=== PATIENT | female | born 1965 | race Caucasian/White ===

== ENCOUNTER 2021-02-19 17:16 | Emergency (ER) | payer MEDICARE ==
[~2021-02-19 17:16] MED LIST: BACTRIM DS TAB1 EACH PO; BENADRYL25 MG PO; KEFLEX250 MG PO; LEVAQUIN500 MG PO; NORCO 5-325 TA1 EACH PO; PEPCID AC20 MG PO; PERCOCET 5-3251 EACH PO; PREDNISONE 20MG20 MG PO; ZOVIRAX800 MG PO
[2021-07-05] MEDS ORDERED: METFORMIN HCL500 MG PO (15:17)
== END 2021-02-19 20:02 | disposition home or self-care (01) ==
LOC: FER 17:16
DX: S46.911A Strain of unspecified muscle, fascia and tendon at shoulder and upper arm level, right arm, initial encounter (principal); Z88.8 Allergy status to other drugs, medicaments and biological substances; W50.0XXA Accidental hit or strike by another person, initial encounter; Y92.009 Unspecified place in unspecified non-institutional (private) residence as the place of occurrence of the external cause
CPT/HCPCS: 73030

== ENCOUNTER 2021-06-30 19:21 | Inpatient (IN) | payer MEDICARE ==
[~2021-06-30] VITALS: Ht 162.6 cm; Wt 97.1 kg
[2021-06-30 21:40] LABS: BASOPHIL 0.8 % (0-2); EOSINOPHIL 0.2 % (0-5); HCT 46.9 % (37.0-47.0); HGB 15.1 g/dl (12.5-16.0); MCH 28.5 pg (25.0-31.0); MCHC 32.2 g/dL (32.0-36.0); MCV 88.7 fL (78.0-100.0); MONOCYTE 4.5 % (0-12); NRBC 0; PLT 221 K/uL (150-400); RBC 5.29 M/uL (4.20-5.40); RDW 13.2 % (11.5-14.0); WBC 6.5 K/uL (4.0-10.5)
[2021-06-30 21:53] LABS: LYMPHOCYTE 21.8 % (15-48)
[2021-06-30 21:55] LABS: ALBUMIN 2.8 g/dL (3.4-5.0); BILIRUBIN - TOTAL 0.2 mg/dL (0.2-1.0); BUN/CREAT RATIO (CALC) 26.6 RATIO; CREATININE 0.64 mg/dL (0.51-0.95); GLOBULIN (CALCULATION) 5.5 g/dL; POTASSIUM 4.5 mmol/L (3.5-5.1); TOTAL PROTEIN 8.3 g/dL (6.4-8.2)
[2021-06-30 22:01] LABS: LACTIC ACID 2.4 mmol/L (0.4-1.9)
[2021-06-30 22:48] LABS: BILIRUBIN NEGATIVE (NEGATIVE); BLOOD NEGATIVE Ery/uL (NEGATIVE); CLARITY CLEAR (CLEAR); COLOR YELLOW (YELLOW); GLUCOSE (U) 3+ mg/dL (NORMAL); LEUKOCYTES 1+ Leu/uL (NEGATIVE); NITRITE POSITIVE (NEGATIVE); PROTEIN TRACE (LOW) mg/dL (NEGATIVE); SPECIFIC GRAVITY 1.025 (1.001-1.030); UROBILINOGEN 0.2 mg/dL (0.2-1.0); pH 5.5 (5.0-9.0)
[2021-06-30 22:55] LABS: BACTERIA 4+; URINARY WBC TNTC
[2021-06-30 23:13] LABS: INFLUENZA A NAA NEGATIVE (NEGATIVE)
[2021-06-30 23:24] LABS: CORONAVIRUS 2019 SARS-COV-2 POSITIVE (NEGATIVE)
[2021-07-01 04:45] LABS: BASOPHIL 0.6 % (0-2); EOSINOPHIL 0 % (0-5); HCT 40.9 % (37.0-47.0); HGB 13.3 g/dl (12.5-16.0); LYMPHOCYTE 12.4 % (15-48); MCH 28.7 pg (25.0-31.0); MCHC 32.5 g/dL (32.0-36.0); MCV 88.3 fL (78.0-100.0); MONOCYTE 2.2 % (0-12); MPV 11.1 fL (6.0-9.5); NRBC 0; PLT 200 K/uL (150-400); RBC 4.63 M/uL (4.20-5.40); RDW 13.1 % (11.5-14.0); WBC 8.6 K/uL (4.0-10.5)
[2021-07-01 04:56] LABS: NEUTROPHIL 82.9 % (41-80)
[2021-07-01 05:10] LABS: BUN/CREAT RATIO (CALC) 29.5 RATIO; CREATININE 0.61 mg/dL (0.51-0.95); POTASSIUM 4.3 mmol/L (3.5-5.1)
--- NOTE | 2021-07-01 05:14 | NUR ---
REMDESIVIR ORDERED NOT AVAILABLE UNTIL PHARMACY HERE SO TIME IS TO BE CHANGED FOR THAT BY OUTSIDE PHARMACY
--- NOTE | 2021-07-01 15:21 | NUR ---
2904 dr ang notified of consult
--- NOTE | 2021-07-01 18:09 | NUR ---
1600 PATIENT IN RESTROOM SMOKING CIGARETTE. AND CHRISTEL, FACTORY REPRESENTATIVE NOIFIED. PATIENT EDUCATED ON NON SMOKING POLICY AND THE DANGER OF SMOKING WHILE ON OXYGEN. PATIENT STATED "I WAS NOT SMOKING" BUT BRYON PEÑA WITNESSED PATIENT SMOKING IN BATHROOM. PATIENT AGAIN EDUCATED ON THE NO SMOKING POLICY.
--- NOTE | 2021-07-01 18:12 | NUR ---
9820 PATIENT REQUESTED TO SEY UP PASSWORD "BABY GIRL"
--- NOTE | 2021-07-01 19:18 | NUR ---
1625 PATIENT 429 NOTIFIED. ORDERED TO GIVE 18 U SSI
[2021-07-01] MEDS ORDERED: VENLAFAXINE HC150 MG PO (20:58)
[2021-07-01] MEDS ORDERED: TRAZODONE HCL150 MG PO (20:59)
--- NOTE | 2021-07-02 14:43 | NUR ---
PT RESIDES ALONE. SHE IS INDEPENDENT OTHER THAN USING A CANE TO MANUVER HER STEPS. PT. STATES THAT SHE HUERTA BEEN DIAGNOSISED A NEW DIABETIC. ASKED IF SHE WOULD LIKE TO HAVE A HH TO ASSIST IN TEACHING WITH HER DIABETES. SHE SAID THAT SHE WOULD SHE DID NOT MAKE ANY REQUESTS OF A PARTICULAR HH. PT. HAS A [facility] ADDRESS, BUT RESIDES IN [facility].
--- NOTE | 2021-07-03 15:18 | NUR ---
[facility] WILL ACCEPT PT FOR HH SERVICES. ADVISED PT. AND NURSE, BRIGIDO, THAT PT. WILL HAVE [facility] FOR HH.
[2021-07-04] MEDS ORDERED: METFORMIN HCL1000 M1 PO (09:39)
[2021-07-04] MEDS ORDERED: DEXAMETHASONE6 MG PO (09:39)
[2021-07-04] MEDS ORDERED: LEVEMIR VI100 UNITS/ SC (09:43)
--- NOTE | 2021-07-04 13:06 | NUR ---
PT STATES THAT SHE DOES NOT HAVE A RIDE HOME. TRIED HER SISTERS, FLO AND CONSUELO THEY BOTH REFUSE TO COME GET HER. GOT PERMISSION FOR HOUSE, MARK, TO CONTACT KARIS[facility]. KAR[facility] WILL PROVISIONING SPECIALIST PT AT 4:00 P.M. AND TRANSFER HER TO HER HOME. REF # IS [id number]. ADVISED KARTHIKEYAN FOFANA AND PT.
[2021-07-05] MEDS ORDERED: METFORMIN HCL500 MG PO (15:17)
--- NOTE | 2021-07-05 15:31 | NUR ---
PATIENT CALLED TODAY STATING THAT SHE WAS DC YESTERDAY AND THAT [employer] DID NOT HAVE HER MEDICAITON AND THAT HOME HEALTH HAD NOT SHOWED UP AT HER HOUSE. I TOLD HER I WOULD LOOK INTO IT AND CALL HER BACK. PER , SHE HAD ONE SCRIPT THAT SHE ALL READY HAD AT HOME BUT HER SENT IN ANOTHER ONE, SHE HAD ONE THAT HE HAD TO CALL IN. AND HER MET[employer]MIN WAS NOT COVERED WITH INSURANCE SO MD HAD TO CALL IN AN MEDICATION THAT WAS COVERED BY MEDICATION. ALSO SENT A CURRENT PHONE NUMBER THAT [facility] COULD CALL THE PATIENT. THE NUMBER IN THE SYSTEM WAS NOT WORKING. DONITA SENT A TEXT TO [facility] WITH THE CORRECT NUMBER [phone].
== END 2021-07-04 17:00 | disposition home health service (06) | DRG 177 ==
LOC: FER 19:21 → FMS 07-01 01:56
PROVIDERS: Emergency Medicine Emergency Medical Services; Nurse Practitioner; ADMIT Allergy & Immunology Allergy
PROC: XW033E5 Introduction of Remdesivir Anti-infective into Peripheral Vein, Percutaneous Approach, New Technology Group 5 (ICD-10-PCS; principal; 2021-07-01)
PROC: 8E0ZXY6 Isolation (ICD-10-PCS; 2021-07-01)
DX: U07.1 COVID-19 (principal); J12.82 Pneumonia due to coronavirus disease 2019; J96.01 Acute respiratory failure with hypoxia; E11.65 Type 2 diabetes mellitus with hyperglycemia; F41.1 Generalized anxiety disorder; F43.10 Post-traumatic stress disorder, unspecified; F32.9 Major depressive disorder, single episode, unspecified; K58.9 Irritable bowel syndrome, unspecified; F17.210 Nicotine dependence, cigarettes, uncomplicated; Z90.710 Acquired absence of both cervix and uterus; Z98.890 Other specified postprocedural states; Z91.040 Latex allergy status; Z88.1 Allergy status to other antibiotic agents; Z88.8 Allergy status to other drugs, medicaments and biological substances
CPT/HCPCS: 36415; 36600; 71045; 80048; 80053; 81001; 82803; 82962; 83036; 83605; 83690; 84145; 84484; 85025; 85379; 87040; 87070; 87077; 87088; 87186; 87205; 93005; 94010; 94640; 94664; 94667; 94668; 94760; 94762; C9399; J0456; J0696; J1100; J1650; J2405; J7030; J7050; J8540; U0002

== ENCOUNTER 2021-11-06 13:02 | Inpatient (IN) | payer MEDICARE, OTHER ==
[~2021-11-06] VITALS: Ht 163 cm; Wt 88.9 kg
[~2021-11-06 13:02] MED LIST changes: +DEXAMETHASONE6 MG PO; +LEVEMIR VI100 UNITS/ SC; +METFORMIN HCL1000 M1 PO; +METFORMIN HCL500 MG PO; +TRAZODONE HCL150 MG PO; +VENLAFAXINE HC150 MG PO
[2021-11-06 15:06] LABS: BASOPHIL 0.5 % (0-2); EOSINOPHIL 0.1 % (0-5); LYMPHOCYTE 6.4 % (15-48); MCH 28.1 pg (25.0-31.0); MCHC 34.1 g/dL (32.0-36.0); MCV 82.4 fL (78.0-100.0); MONOCYTE 2.5 % (0-12); MPV 12.7 fL (6.0-9.5); NEUTROPHIL 88.3 % (41-80); NRBC 0; PLT 188 K/uL (150-400); RBC 5.34 M/uL (4.20-5.40); RDW 13.2 % (11.5-14.0); WBC 24.3 K/uL (4.0-10.5)
[2021-11-06 15:16] LABS: INR 1.08 (0.9-1.2); PROTHROMBIN TIME 13.4 SECONDS (11.8-13.4); PTT 28.6 SECONDS (24.4-34.7)
[2021-11-06 15:25] LABS: ALBUMIN 2.1 g/dL (3.4-5.0); ALKALINE PHOSHATASE 143 U/L (46-116); ALT 47 U/L (14-59); AST 89 U/L (15-37); BILIRUBIN - TOTAL 0.6 mg/dL (0.2-1.0); BUN 61 mg/dL (7-18); BUN/CREAT RATIO (CALC) 59.2 RATIO; CHLORIDE 89 mmol/L (98-107); CO2 (BICARBONATE) 24 mmol/L (21-32); CREATININE 1.03 mg/dL (0.51-0.95); GLOBULIN (CALCULATION) 5.5 g/dL; GLUCOSE 259 mg/dL (74-106); POTASSIUM 4.1 mmol/L (3.5-5.1); TOTAL PROTEIN 7.6 g/dL (6.4-8.2)
[2021-11-06 15:27] LABS: LACTIC ACID 1.8 mmol/L (0.4-1.9)
[2021-11-06 16:15] LABS: BILIRUBIN 1+ mg/dL (NEGATIVE); BLOOD 3+ Ery/uL (NEGATIVE); CLARITY CLEAR (CLEAR); COLOR YELLOW (YELLOW); GLUCOSE (U) TRACE mg/dL (NORMAL); LEUKOCYTES NEGATIVE Leu/uL (NEGATIVE); NITRITE NEGATIVE (NEGATIVE); PROTEIN 1+ mg/dL (NEGATIVE); UROBILINOGEN 0.2 mg/dL (0.2-1.0); pH 5.5 (5.0-9.0)
[2021-11-06 16:16] LABS: AMPHETAMINES NEGATIVE (NEGATIVE); BARBITURATES NEGATIVE (NEGATIVE); ECSTASY (MDMA) NEGATIVE (NEGATIVE); MARIJUANA (THC) NEGATIVE (NEGATIVE); METHADONE NEGATIVE (NEGATIVE); OPIATES NEGATIVE (NEGATIVE)
[2021-11-06 16:17] LABS: OXYCODONE NEGATIVE (NEGATIVE)
[2021-11-06 16:20] LABS: BACTERIA TRACE
[2021-11-06 16:21] LABS: AMORPHOUS URATES CRYSTALS MODERATE; GRANULAR CASTS MODERATE; MUCOUS MODERATE; YEAST PRESENT
[2021-11-06 17:23] LABS: CORONAVIRUS 2019 SARS-COV-2 NEGATIVE (NEGATIVE); INFLUENZA A NAA NEGATIVE (NEGATIVE)
[2021-11-07 07:13] LABS: BASOPHIL 0.4 % (0-2); EOSINOPHIL 0.3 % (0-5); HCT 36.7 % (37.0-47.0); HGB 12.5 g/dl (12.5-16.0); LYMPHOCYTE 13.2 % (15-48); MCH 27.9 pg (25.0-31.0); MCHC 34.1 g/dL (32.0-36.0); MCV 81.9 fL (78.0-100.0); MONOCYTE 5.3 % (0-12); MPV 12.1 fL (6.0-9.5); NRBC 0; PLT 193 K/uL (150-400); RBC 4.48 M/uL (4.20-5.40); RDW 13.3 % (11.5-14.0); WBC 24.9 K/uL (4.0-10.5)
[2021-11-07 07:37] LABS: BUN 58 mg/dL (7-18); BUN/CREAT RATIO (CALC) 59.2 RATIO; C-REACTIVE PROTEIN >18.00 mg/dL (<=0.90); CHLORIDE 94 mmol/L (98-107); CO2 (BICARBONATE) 23 mmol/L (21-32); CREATININE 0.98 mg/dL (0.51-0.95); GLUCOSE 190 mg/dL (74-106); POTASSIUM 3.1 mmol/L (3.5-5.1)
[2021-11-08 05:51] LABS: BASOPHIL 0.6 % (0-2); HCT 36.6 % (37.0-47.0); HGB 12.6 g/dl (12.5-16.0); LYMPHOCYTE 15.3 % (15-48); MCH 28.3 pg (25.0-31.0); MCHC 34.4 g/dL (32.0-36.0); MCV 82.1 fL (78.0-100.0); MONOCYTE 4.8 % (0-12); MPV 11.6 fL (6.0-9.5); NEUTROPHIL 73.1 % (41-80); NRBC 0; PLT 254 K/uL (150-400); RBC 4.46 M/uL (4.20-5.40); RDW 13.6 % (11.5-14.0); WBC 25.2 K/uL (4.0-10.5)
[2021-11-08 06:01] LABS: BUN 42 mg/dL (7-18); BUN/CREAT RATIO (CALC) 51.2 RATIO; C-REACTIVE PROTEIN >18.00 mg/dL (<=0.90); CHLORIDE 100 mmol/L (98-107); CO2 (BICARBONATE) 26 mmol/L (21-32); CREATININE 0.82 mg/dL (0.51-0.95); GLUCOSE 126 mg/dL (74-106); POTASSIUM 3.1 mmol/L (3.5-5.1)
[2021-11-09 04:43] LABS: BASOPHIL 0.9 % (0-2); EOSINOPHIL 1.6 % (0-5); HCT 35.7 % (37.0-47.0); HGB 11.9 g/dl (12.5-16.0); LYMPHOCYTE 19.4 % (15-48); MCH 27.7 pg (25.0-31.0); MCHC 33.3 g/dL (32.0-36.0); MONOCYTE 5.6 % (0-12); NEUTROPHIL 64.5 % (41-80); NRBC 0; PLT 291 K/uL (150-400); RDW 13.9 % (11.5-14.0)
[2021-11-09 05:04] LABS: BUN/CREAT RATIO (CALC) 41.7 RATIO; CREATININE 0.96 mg/dL (0.51-0.95); POTASSIUM 3.2 mmol/L (3.5-5.1)
--- NOTE | 2021-11-09 14:27 | NUR ---
BEDSIDE SWALLOW WITH WATER: PT COUGHED AFTER SMALL SIPS OF WATER WERE GIVEN. MD NOTIFIED.
[2021-11-10 05:42] LABS: BASOPHIL 0.8 % (0-2); EOSINOPHIL 1.6 % (0-5); HCT 38.3 % (37.0-47.0); HGB 12.6 g/dl (12.5-16.0); LYMPHOCYTE 20.6 % (15-48); MCH 27.9 pg (25.0-31.0); MCHC 32.9 g/dL (32.0-36.0); MCV 84.9 fL (78.0-100.0); MONOCYTE 6.8 % (0-12); NRBC 0; PLT 341 K/uL (150-400); RBC 4.51 M/uL (4.20-5.40); RDW 14.2 % (11.5-14.0)
[2021-11-10 06:00] LABS: WBC 16.7 K/uL (4.0-10.5)
[2021-11-10 06:37] LABS: BUN/CREAT RATIO (CALC) 42.2 RATIO; C-REACTIVE PROTEIN 12.1 mg/dL (<=0.90); CREATININE 0.83 mg/dL (0.51-0.95); POTASSIUM 4.4 mmol/L (3.5-5.1)
--- NOTE | 2021-11-10 16:33 | NUR ---
I ATTEMPED TO PLACE A PERIPHERAL IN PTS RFA BUT WAS NOT SUCCESSFUL. PT THEN REFUSED TO BE STUCK ANYMORE AT THIS TIME. WAS NOTIFIED OF PT REFUSAL AND WENT TO INFORM PT OF RISKS OF KEEPING CENTRAL LINE. NOTIFIED THIS RN THAT PT AGREED TO A NEW IV PLACED. JUAN ALBERTO WINDOW TRIMMER WAS NOTIFIED THAT ASSISTANCE WAS NEEDED. JUAN ALBERTO USED ULTRASOUND TO ATTEMPT TO PLACE IV.
[2021-11-11 05:13] LABS: BASOPHIL 0.7 % (0-2); EOSINOPHIL 1.2 % (0-5); HCT 35.9 % (37.0-47.0); HGB 11.5 g/dl (12.5-16.0); LYMPHOCYTE 21.4 % (15-48); MCH 27.6 pg (25.0-31.0); MCV 86.3 fL (78.0-100.0); MONOCYTE 6.8 % (0-12); MPV 10.8 fL (6.0-9.5); NRBC 0; PLT 351 K/uL (150-400); RBC 4.16 M/uL (4.20-5.40); RDW 14.4 % (11.5-14.0); WBC 13.9 K/uL (4.0-10.5)
[2021-11-11 05:15] LABS: NEUTROPHIL 64.5 % (41-80)
[2021-11-11 05:30] LABS: BUN/CREAT RATIO (CALC) 39.4 RATIO; CREATININE 0.71 mg/dL (0.51-0.95); POTASSIUM 4.7 mmol/L (3.5-5.1)
[2021-11-12 06:08] LABS: HBSAG SCREEN Negative (Negative); HEP A AB, IGM Negative (Negative); HEP B CORE AB, IGM Negative (Negative); HEP C VIRUS AB 4.5 (0.0-0.9); HIV SCREEN 4TH GENERATION WRFX Non Reactive (Non Reactive)
--- NOTE | 2021-11-12 12:53 | NUR ---
[facility] INFORMED OF ORDER, SPOKE WITH JOE. THEY WILL NEED THE PATIENT TO BE MEDICALLY STABLE FOR D/C BEFORE THEY WILL DO THE EVAL. WILL SPEAK WITH AND F/U
--- NOTE | 2021-11-12 18:54 | NUR ---
GENERAL DISPOSITION FORM GIVEN TO PATIENT
[2021-11-13 08:43] LABS: BASOPHIL 0.6 % (0-2); EOSINOPHIL 1.1 % (0-5); HCT 34.9 % (37.0-47.0); HGB 11.2 g/dl (12.5-16.0); LYMPHOCYTE 17.2 % (15-48); MCH 28.1 pg (25.0-31.0); MCHC 32.1 g/dL (32.0-36.0); MCV 87.5 fL (78.0-100.0); MONOCYTE 6.1 % (0-12); MPV 10.5 fL (6.0-9.5); NEUTROPHIL 71.5 % (41-80); NRBC 0; PLT 397 K/uL (150-400); RBC 3.99 M/uL (4.20-5.40); RDW 14.2 % (11.5-14.0); WBC 12.4 K/uL (4.0-10.5)
[2021-11-13 08:58] LABS: BUN/CREAT RATIO (CALC) 22.4 RATIO; C-REACTIVE PROTEIN 10.1 mg/dL (<=0.90); CREATININE 0.67 mg/dL (0.51-0.95)
--- NOTE | 2021-11-13 10:24 | NUR ---
11/13/21 Ms. Kerns lives alone in her own home. She was independent in the home and community prior to admission and does not use any DME. - Ms. Kerns has requested SNF placement. Referrals have been sent to facilities of choice. [facility] do not have beds. [facility] and [facility] are reviewing.
[2021-11-13] MEDS ORDERED: CEFDINIR300 MG PO (13:56)
--- NOTE | 2021-11-14 10:22 | NUR ---
11/14/21 All facilities denied to accept patient due to social history and questionable if she would meet SNF criteria. Referrals have been made to [facility] and [facility] for a RW per patient choice. - Christina Doan, sister, [phone], has agreed to transport patient home at 1:00. Ms. Doan reports that Ms. Kerns does not have electricity in the home. - Ms. Kerns was referred to [facility]. Ms. Kerns was educated to [facility], [facility], Homeless Shelters, and subsidized rent apartments.
== END 2021-11-14 12:50 | disposition home health service (06) | DRG 871 ==
LOC: FER 13:02 → FMS 16:59 → FTCU 16:59 → FMS 20:01 → FTCU 21:14 → FMS 11-11 22:01
PROVIDERS: Allergy & Immunology Allergy; Emergency Medicine; ADMIT Family Medicine
PROC: HZ2ZZZZ Detoxification Services for Substance Abuse Treatment (ICD-10-PCS; principal; 2021-11-06)
DX: A41.59 Other Gram-negative sepsis (principal); J18.9 Pneumonia, unspecified organism; J96.01 Acute respiratory failure with hypoxia; G93.41 Metabolic encephalopathy; E87.1 Hypo-osmolality and hyponatremia; F10.139 Alcohol abuse with withdrawal, unspecified; J90 Pleural effusion, not elsewhere classified; Z20.822 Contact with and (suspected) exposure to COVID-19; I67.1 Cerebral aneurysm, nonruptured; E11.9 Type 2 diabetes mellitus without complications; F43.10 Post-traumatic stress disorder, unspecified; F41.0 Panic disorder [episodic paroxysmal anxiety]; F32.A Depression, unspecified; Z86.16 Personal history of COVID-19; Z81.8 Family history of other mental and behavioral disorders; Z90.710 Acquired absence of both cervix and uterus; Z98.890 Other specified postprocedural states; Z88.1 Allergy status to other antibiotic agents; Z78.1 Physical restraint status; Z79.4 Long term (current) use of insulin; Z79.899 Other long term (current) drug therapy
CPT/HCPCS: 36415; 36600; 70450; 70551; 71045; 76705; 80048; 80053; 80074; 80305; 81001; 82140; 82803; 82962; 83036; 83605; 84145; 84443; 84484; 85025; 85610; 85730; 86140; 87040; 87077; 87088; 87389; 87449; 92526; 93005; 94010; 94640; 94667; 94668; 94760; 97162; 97166; 97530; 97530-GP; 97535; G0480; J0456; J0696; J1650; J1815; J2060; J2543; J3411; J7030; J7050; J7120; U0002